=== PATIENT | male | born 1990 | race Caucasian/White ===

== ENCOUNTER 2018-12-21 09:02 | Emergency (ER) | payer OTHER ==
[~2018-12-21] VITALS: Ht 180.3 cm; Wt 103.0 kg
[2018-12-21 09:08] VITALS: Ht 180.3 cm; Wt 103.0 kg
[2018-12-21 11:02] LABS: CALCIUM 9.6 mg/dL (8.5-10.1); CHLORIDE SERUM 107 mmol/L (98-107); CREATININE SERUM 1.3 mg/dL (0.7-1.3); GFR1 > 60 mL/min; GLUCOSE SERUM 105 mg/dL (74-106); POTASSIUM SERUM 3.5 mmol/L (3.5-5.1); SODIUM SERUM 143 mmol/L (136-145)
[2018-12-21 11:07] LABS: ALBUMIN 3.8 g/dL (3.4-5.0); ALKALINE PHOSPHATASE 117 U/L (46-116); ALT/SGPT 75 U/L (16-63); AST/SGOT 25 U/L (15-37); BILIRUBIN TOTAL 0.39 mg/dL (0.20-1.00); TOTAL PROTEIN, SERUM 6.7 g/dL (6.4-8.2)
[2018-12-21 11:21] LABS: BASOPHIL % 0.6 % (0-2); PLATELET COUNT 196 x10^3mcL (130-400); RED CELL DISTRIBUTION WIDTH 12.5 % (11.5-14.5)
[2018-12-21 12:27] VITALS: BP 121/72
== END 2018-12-21 12:27 | disposition home or self-care (01) ==
LOC: ED 09:02
PROVIDERS: Emergency Medicine
DX: N20.0 Calculus of kidney (principal); R31.9 Hematuria, unspecified
CPT/HCPCS: J1885; J7030; Q0092

== ENCOUNTER 2019-02-03 03:01 | Inpatient (IN) | payer OTHER ==
[~2019-02-03] VITALS: Ht 175.3 cm; Wt 103.0 kg
[2019-02-03 03:10] VITALS: Ht 175.3 cm; Wt 103.0 kg
--- NOTE | 2019-02-03 03:16 | NUR ---
PT CAME TO ED CO FLANK PAIN, LEFT LOWER QUAD ABD PAIN, AND TESTICULAR PAIN. PT STS PAIN STARTED ABOUT 45 MINUTES PRIOR TO ARRIVAL. VOMITING STARTED WHILE IN PARKING LOT. PT STS HAS HX OF KIDNEY STONES. PT STS HIS PAIN IS SHARP RATING IT A 10/10. PT STS HE NOTICED SLIGHT TESTICULAR SWELLING. NO S/S OF DISTRESS. RESP E/U. COMFORT MEASURES IMPLEMENTED. FAMILY AT BEDSIDE. WILL CONTINUE TO MONITOR.
--- NOTE | 2019-02-03 03:56 | NUR ---
LAB AT BEDSIDE FOR BLOOD DRAW
[2019-02-03 04:01] LABS: UA SPECIFIC GRAVITY >=1.030 (1.005-1.035); microscopic required? YES; urine erythrocyte 3+ (NEGATIVE)
[2019-02-03 04:04] LABS: BASOPHIL % 0.4 % (0-2); PLATELET COUNT 228 x10^3mcL (130-400); RED CELL DISTRIBUTION WIDTH 13.2 % (11.5-14.5)
[2019-02-03 04:13] LABS: CALCIUM 9.3 mg/dL (8.5-10.1); CARBON DIOXIDE 22.6 mmol/L (21-32); CREATININE SERUM 1.6 mg/dL (0.7-1.3); POTASSIUM SERUM 3.7 mmol/L (3.5-5.1)
[2019-02-03 04:18] LABS: BILIRUBIN TOTAL 0.44 mg/dL (0.20-1.00); TOTAL PROTEIN, SERUM 7.3 g/dL (6.4-8.2)
--- NOTE | 2019-02-03 05:41 | NUR ---
PT MEDICATED PER ORDER. PT VERBALIZED UNDERSTANDING OF MEDICATION TEACHING. SEE EMAR FOR DETAILS. PT LAYING ON VICKY IN POSITION OF COMFORT. DR. RENDON AT BEDSIDE TO DISCUSS POC. COMFORT MEASURES IMPLEMENTED. CALL LIGHT W/IN REACH. WILL CONTINUE TO MONITOR.
--- NOTE | 2019-02-03 06:18 | NUR ---
REPORT TO HENRIQUE CORDOVA TO ASSUME CARE OF PT.
[2019-02-03 06:33] LABS: MAGNESIUM 2.1 mg/dL (1.8-2.4); PHOSPHOROUS 4.3 mg/dL (2.5-4.9)
[2019-02-03 06:40] LABS: CHOLESTEROL/HDL RATIO 8.5
--- NOTE | 2019-02-03 07:17 | NUR ---
PT TRANFERRED TO MED SURG UNIT, ACCOMPANIED BY EMT. NO S/S OF DISTRESS. RESP E/U. IV SITE PATENT, NO S/S OF INFILTRATION.
--- NOTE | 2019-02-03 07:38 | NUR ---
RECEIVED PATIENT FROM ED [facility]IA [facility]. PATIENT IS AMBULATORY W//O ASSISTANCE AND ON ROOM AIR WITH NO DISTRESS. PT C/O LT FLANK PAIN 03/10. WILL MEDICATE. VITALS TAKEN AND STABLE (SEE DOCUMENTATION). ALL QUESTIONS AND CONCERNS ADDRESSED.
--- NOTE | 2019-02-03 08:16 | NUR ---
MANAGER HEAVY DUTY TONI IN TO SEE AND ASSESS PATIENT.
[2019-02-03 09:20] LABS: CALCIUM 8.8 mg/dL (8.5-10.1); CARBON DIOXIDE 24.5 mmol/L (21-32); CREATININE SERUM 1.6 mg/dL (0.7-1.3); POTASSIUM SERUM 4.5 mmol/L (3.5-5.1)
[2019-02-03 10:20] VITALS: BP 109/63
--- NOTE | 2019-02-03 11:12 | NUR ---
SPOKE WITH TONI TO REQUEST DIET. TONI ORDERED CARDIAC DIET.
--- NOTE | 2019-02-03 15:05 | NUR ---
IN TO SEE PATIENT AND ASSESS NEEDS. PT RESTING COMFORTABLY IN BED. ALL NEEDS MET.
--- NOTE | 2019-02-03 15:55 | NUR ---
IN TO SEE PATIENT TO ASSESS NEEDS AND EMPTY URINAL. NO STONE NOTED. PT RESTING COMFORTABLY IN BED WITH FAMILY AT BEDSIDE. ALL NEEDS MET.
[2019-02-03 16:14] VITALS: BP 113/56
--- NOTE | 2019-02-03 17:53 | NUR ---
IN TO ASSESS NEEDS. WATER PROVIDED. PAIN ASSESED. PT REPORTS 08/10 PAIN. NO ACTION REQUIRED. URINAL EMPTIED 200 ML OUT. NO STONE NOTED.
--- NOTE | 2019-02-03 19:41 | NUR ---
REPORT GIVEN TO BRAD DUENAS. PATIENT RESTING COMFORTABLY IN BED WITH FAMILY AT BEDSIDE. ALL NEEDS MET. ALL QUESTIONS AND CONCERNS ADDRESSED. ALL CARES ENDORSED.
--- NOTE | 2019-02-03 20:00 | NUR ---
SHIFT REASSESSMENT DONE.PATIENT ALERT AND ORIENTED.NOT IN RESP DISTRESS,AUNT WAS AT BEDSIDE,SUPPORTIVE OF CARE.BREATHING EASY.MOVING ALL EXT WELL.MEDSURG PATIENT,NO TELE,NO CHEST PAIN.SKIN INTACT.HAS KIDNEY STONES HX,ON FLOMAX,STRAIN URINE/NURSES.CALL LIGHT IN REACH.
--- NOTE | 2019-02-03 20:27 | NUR ---
GIVEN NORCO FOR PAIN,HS SNACK OFFERED,SAYS HE WANTS IT LATER.
[2019-02-03 21:37] VITALS: BP 121/68
--- NOTE | 2019-02-04 00:54 | NUR ---
CHECKED AT INTERVALS FOR NEEDS AND SAFETY.
--- NOTE | 2019-02-04 04:40 | NUR ---
AWAKE,USING HIS COMPUTER,NO DISTRESS.UP AND ABOUT RESTROOM,URINE STRAIN,NO KIDNEY STONE NOTED.
--- NOTE | 2019-02-04 05:49 | NUR ---
I AND O MEASURED.NS AT 125 CC/ HOUR.WILL ENDORSE TO NEXT SHIFT.
[2019-02-04 06:41] VITALS: BP 119/53
[2019-02-04 07:02] LABS: BASOPHIL % 0.5 % (0-2); PLATELET COUNT 179 x10^3mcL (130-400); RED CELL DISTRIBUTION WIDTH 13.3 % (11.5-14.5)
[2019-02-04 07:08] LABS: CALCIUM 9.1 mg/dL (8.5-10.1); CARBON DIOXIDE 22.6 mmol/L (21-32); CHLORIDE SERUM 106 mmol/L (98-107); CREATININE SERUM 1.2 mg/dL (0.7-1.3); GFR1 > 60 mL/min; GLUCOSE SERUM 92 mg/dL (74-106); POTASSIUM SERUM 3.4 mmol/L (3.5-5.1); SODIUM SERUM 141 mmol/L (136-145)
--- NOTE | 2019-02-04 07:20 | NUR ---
RECEIVED PT IN BED. ASSESSED AND DOCUMENTED. DENIES PAIN THIS TIME. STABLE. SAFTEY PRECAUTIONS ARE IN PLACE. WILL MONITOR.
[2019-02-04 09:06] VITALS: BP 105/57
[2019-02-04] MEDS ORDERED: ZOCOR20 MG PO (09:45)
[2019-02-04] MEDS ORDERED: BACDS PO (09:45)
--- NOTE | 2019-02-04 10:00 | NUR ---
PT REMAINS STABLE. DENIES ANY PAIN. LADONNA MUÑOZ SPOKE WITH PT AND INFORMED HIM SHE WILL DISCHARGE HIM HOME TODAY.
[2019-02-04 11:46] VITALS: BP 105/57
--- NOTE | 2019-02-04 12:00 | NUR ---
DISCHARGE INSTRUCTIONS AND PRESCRIPTIONS GIVEN. PB SIGNED AND SENT WITH PT. IV REMOVED AND DRESSING APPLIED. PT DENIES ANY PAIN. STABLE. RECREATION THERAPIST WHEELED PT DOWN TO LOBBY ACCOMPANIED WITH FAMILY. PT DC HOME.
== END 2019-02-04 12:40 | disposition home or self-care (01) | DRG 690 ==
LOC: ED 03:01 → MU 05:46
PROVIDERS: Emergency Medicine; ADMIT Internal Medicine
DX: N39.0 Urinary tract infection, site not specified (principal); N20.2 Calculus of kidney with calculus of ureter; N13.9 Obstructive and reflux uropathy, unspecified; E66.9 Obesity, unspecified
CPT/HCPCS: 83880; G0378; J0696; J1885; J2270; J2405; J3010; J7030; Q0092